=== PATIENT | male | born 1980 | race Caucasian/White ===

== ENCOUNTER 2016-08-13 07:26 | Emergency (ER) | payer BC ==
[2016-08-13 07:54] VITALS: BP 147/87
--- NOTE | 2016-08-13 09:04 | RAD ---
HISTORY: Infected open wound on alvarado of right lower extremity, status post penetrating trauma COMPARISONS: None VIEWS: 2, Frontal and lateral views of the right foreleg FINDINGS: BONE DENSITY: Normal. BONES: There is no displaced fracture. There is no appreciable erosion or periosteal reaction. JOINTS: There is no arthropathy. ALIGNMENT: There is no dislocation. SOFT TISSUES: There is mild soft tissue swelling of the distal tibial diaphysis anteriorly OTHER FINDINGS: None. IMPRESSION: SOFT TISSUE SWELLING. NO APPRECIABLE EROSION OR PERIOSTEAL REACTION. NO ACUTE OSSEOUS INJURY. PLAIN FILM FINDINGS OF OSTEOMYELITIS ARE RELATIVELY LATE FINDINGS. IF THERE IS PERSISTENT CLINICAL CONCERN FOR OSTEOMYELITIS, RECOMMEND CORRELATION WITH FOLLOWUP IMAGING, THREE-PHASE BONE SCANNING, WHITE BLOOD CELL SCAN, AND/OR MRI OF THE AFFECTED REGION. .
[2016-08-13 10:21] LABS: Hematocrit 41 % (42-52); Mean Corpuscular HGB Conc 34 g/dl (31-36); Mean Corpuscular Hemoglobin 31 pg (27-31); Mean Corpuscular Volume 91 fL (80-94); Mean Platelet Volume 9 um3 (7.4-10.4); Red Blood Count 4.58 10^6/ul (4.0-5.4); Red Cell Distribution Width 14 % (10.5-15)
[2016-08-13 11:48] LABS: Erythrocyte Sed Rate 16 mm/Hr (0-14)
--- NOTE | 2016-08-13 14:45 | UC ---
Donald Renner Karl, scribed for Renee Sosa DO on 08/13/16 at 0757 . Laceration HPI - HPI Summary HPI Summary: Pt is a 35 y/o male that presents to [facility] c/o an infected laceration on his right alvarado that he sustained while at 6 days ago. Pt reported that he was at work when he cut his alvarado on a plastic pallet and that medical personnel at his workplace put Neosporin and a Bandaid on it. Pt reported that since the initial injury the area surrounding the cut has become larger, swollen, erythematous, and increasingly painful and there is now bruising around his ankle. Pt stated that he feels 6/10 pain on the left and right side of the wound and above and below it in a ring around his leg, stating "the pain is on the bone." Pt also reported fever, chills, diaphoresis, and intermittent CP "like a pinch" that he felt last night that usually occurs when he is stressed. Pt denied nausea and vomiting. - History Of Current Complaint Chief Complaint: REMINGTONkin Stated Complaint: OPEN WOUND-RT ALVARADO Time Seen by Provider: 08/13/16 07:31 Hx Obtained From: Patient Laceration Location: Ankle - right alvarado Mechanism Of Injury: Blunt Trauma Onset/Duration: Gradual Onset, Lasting Days, Worse Since Severity: Moderate Pain Intensity: 6 - right alvarado pain Pain Scale Used: 0-10 Numeric Aggravating Factors: Nothing Full Body (No Head): 1 - infected wound - Allergies/Home Medications Allergies/Adverse Reactions: Allergies Allergy/AdvReac Type Severity Reaction Status Date / Time Sulfa Antibiotics Allergy Swelling Verified 02/08/15 12:09 Of Face,Lips,& Throat PMH/Surg Hx/FS Hx/Imm Hx Endocrine History Of: Denies: Diabetes, Thyroid Disease Cardiovascular History Of: Reports: Cardiac Disorders - Pericarditis Denies: Hypertension, Pacemaker/ICD Respiratory History Of: Reports: Asthma - A CHILD Denies: COPD GI/ History Of: Denies: Ulcer, Renal Disease - Surgical History Surgical History: Yes Surgery Procedure, Year, and Place: APPENDECTOMY. wisdom teeth extraction. SINUS POLYPS REMOVED - Family History Known Family History: Positive: Cardiac Disease - youngest [place] at 45 y/o, Hypertension, Other - [place] - Social History Occupation: Employed Full-time Lives: With Family Alcohol Use: Weekly Substance Use Type: None Smoking Status (MU): Heavy Every Day Tobacco Smoker Type: Cigarettes Amount Used/How Often: 4 CIG/DAY Length of Time of Smoking/Using Tobacco: 15 years Have You Smoked in the Last Year: Yes Cessation Counseling: Counseled 3+Min - 10 Min - Immunization History Most Recent Influenza Vaccination: Season Review of Systems Constitutional: Fever, Chills, Other - diaphoresis Skin: Bruising, Other - laceration right alvarado Eyes: Negative ENT: Negative Respiratory: Negative Cardiovascular: Negative Gastrointestinal: Negative Genitourinary: Negative Motor: Negative Neurovascular: Negative Musculoskeletal: Edema - right alvarado, Other: - right alvarado Neurological: Negative Psychological: Negative All Other Systems Reviewed And Are Negative: Yes Physical Exam Triage Information Reviewed: Yes Appearance: Well-Appearing, No Pain Distress, Well-Nourished Vital Signs: Initial Vital Signs Temp 98.3 F 08/13/16 07:43 Pulse 92 08/13/16 07:43 Resp 16 08/13/16 07:43 BP 147/87 08/13/16 07:43 Pulse Ox 98 08/13/16 07:43 Vital Signs Reviewed: Yes Eyes: Positive: Conjunctiva Clear. Negative: Discharge ENT: Positive: Hearing grossly normal. Negative: Muffled/hoarse voice Neck exam: Normal Neck: Positive: Supple Respiratory: Positive: Chest non-tender, Lungs clear, Normal breath sounds, No respiratory distress Cardiovascular: Positive: RRR, No Murmur Neurological: Positive: Alert, Muscle Tone Normal Psychological Exam: Normal Psychological: Positive: Age Appropriate Behavior Skin: Positive: significant lesion(s) - 5 cm gash distal 1/3 over ant tibia. area around wound is hot, swollen, erythematous and tender. pt has equisite blaise tenderness on tibia above and below wound Diagnostics - Radiology XR RLE Xray Interpretation: Positive (See Comments) Radiology Interpretation Completed By: Radiologist - IMPRESSION: SOFT TISSUE SWELLING. NO APPRECIABLE EROSION OR PERIOSTEAL REACTION. NO ACUTE OSSEOUS INJURY. PLAIN FILM FINDINGS OF OSTEOMYELITIS ARE RELATIVELY LATE FINDINGS. IF THERE IS PERSISTENT CLINICAL CONCERN FOR OSTEOMYELITIS, RECOMMEND CORRELATION WITH FOLLOWUP IMAGING, THREE-PHASE BONE SCANNING, WHITE BLOOD CELL SCAN, AND/OR MRI OF THE AFFECTED REGION. Laceration Course/Dx - Differential Dx - Laceration/Wound Differental Diagnoses: Avulsion, Cellulitis, Other - wound infection, osteomyelitis Provider Diagnoses: wound infection - Physician Notification/Consults Discussed Patient Care With: Dr. Marquez (Ortho) at 08:55 who agreed to accept the pt. Discharge - Discharge Plan Condition: Stable Disposition: HOME Patient Education Materials: Wound Infection (ED), Osteomyelitis (ED) Referrals: Suleiman Hunt MD [Primary Care Provider] - Oracio Marquez MD [Medical Doctor] - (GOT TO HER OFFICE NOW) Additional Instructions: WE ARE CONCERNED ABOUT THE POSSIBILITY OF AN INFECTION IN THE BONE. SO, WE ARE SENDING YOU TO THE ORTHOPEDIST, DR MARQUEZ TO BE EVALUATED. PLEASE GO THERE NOW. FOLLOW-UP CARE: You should establish with a private physician for follow-up care. If you are unable to get a timely appointment, or if you are worsening, call us or return for re-evaluation. An additional resource available to assist in finding the appropriate physician for your health care needs is the Physician Referral Center. You may contact them by calling [phone]. The documentation as recorded by the Donald batres Karl accurately reflects the service I personally performed and the decisions made by , Renee Sosa DO.
== END 2016-08-13 09:36 | disposition home or self-care (01) ==
LOC: UCEAST 07:26
DX: S81.811A Laceration without foreign body, right lower leg, initial encounter (principal); L08.9 Local infection of the skin and subcutaneous tissue, unspecified; W45.8XXA Other foreign body or object entering through skin, initial encounter; Y93.9 Activity, unspecified; Y92.9 Unspecified place or not applicable; Y99.0 Civilian activity done for income or pay; Z88.2 Allergy status to sulfonamides; F17.210 Nicotine dependence, cigarettes, uncomplicated
CPT/HCPCS: 36415; 85025; 85652; 86141; 99211; G0463

== ENCOUNTER 2017-10-04 03:32 | Emergency (ER) | payer BC ==
[2017-10-04] MEDS ORDERED: Al Hydrox/Mg Hydrox/Simet LIQ* 30 ML UDC PO ONE (03:50)
[2017-10-04] MEDS ORDERED: Pantoprazole IV* 40 MG IV ONE (03:51)
[2017-10-04 04:08] LABS: ABS Basophils 0.1 10^3/ul (0-0.2); ABS Eosinophils 0.1 10^3/ul (0-0.6); ABS Lymphocytes 2.1 10^3/ul (1.0-4.8); ABS Monocytes 0.4 10^3/ul (0-0.8); ABS Neutrophils 3.7 10^3/ul (1.5-7.7); ABS Nucleated RBC 0 10^3/ul; Eosinophil % 1.6 % (0-6); Hematocrit 38 % (42-52); Hemoglobin 13.3 g/dl (14.0-18.0); Mean Corpuscular HGB Conc 35 g/dl (31-36); Mean Corpuscular Hemoglobin 33 pg (27-31); Mean Corpuscular Volume 94 fL (80-94); Mean Platelet Volume 8 um3 (7.4-10.4); Nucleated Red Blood Cells % 0; Platelet Count 301 10^3/ul (150-450); Red Blood Count 4.11 10^6/ul (4.0-5.4); Red Cell Distribution Width 14 % (10.5-15); White Blood Count 6.4 10^3/ul (3.5-10.8)
[2017-10-04 04:15] LABS: INR 0.94 (0.77-1.02)
[2017-10-04 04:23] LABS: EGFR Non-African American 96.2 (>60)
[2017-10-04 05:08] VITALS: BP 112/65
--- NOTE | 2017-10-04 05:21 | ED ---
Aury Renner Julia, scribed for David Hoang MD on 10/04/17 at 0350 . 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 Patient reports relief with belching. Patient denies radiating pain. EMS treated with 324mg of ASA and Nitroglycerin. Patient reports recent stress. - History of Current Complaint Chief Complaint: EDChestPainROMI Time Seen by Provider: 10/04/17 03:38 Hx Obtained From: Patient, EMS Onset/Duration: Started Hours Ago, Resolved Timing: Lasting Minutes Pain Intensity: 0 Chest Pain Location: Mid Sternal - Sub-sternal Chest Pain Radiates: No Alleviating Factor(s): Other: - belching Associated Signs and Symptoms: Positive: Shortness of Breath - Allergy/Home Medications Allergies/Adverse Reactions: Allergies Allergy/AdvReac Type Severity Reaction Status Date / Time Sulfa (Sulfonamide Allergy Swelling Verified 10/04/17 03:52 Antibiotics) Of Face,Lips,& Throat PMH/Surg Hx/FS Hx/Imm Hx Endocrine/Hematology History: Denies: Hx Diabetes, Hx Thyroid Disease Cardiovascular History: Denies: Hx Hypertension, Hx Pacemaker/ICD Respiratory History: Reports: Hx Asthma - A CHILD Denies: Hx Chronic Obstructive Pulmonary Disease (COPD) GI History: Denies: Hx Ulcer History: Denies: Hx Renal Disease Sensory History: Denies: Hx Hearing Aid Neurological History: Reports: Other Neuro Impairments/Disorders - DYSTONIA Denies: Hx Headaches Psychiatric History: Denies: Hx Panic Disorder - Surgical History Surgery Procedure, Year, and Place: APPENDECTOMY. wisdom teeth extraction. SINUS POLYPS REMOVED Infectious Disease History: No Infectious Disease History: Denies: Hx Hepatitis, Hx Human Immunodeficiency Virus (HIV), History Other Infectious Disease, Traveled Outside the [place] in Last 30 Days - Family History Known Family History: Positive: Cardiac Disease - youngest [place] at 45 y/o, Hypertension, Other - [place] - Social History Alcohol Use: Weekly Substance Use Type: Reports: None Smoking Status (MU): Heavy Every Day Tobacco Smoker Type: Cigarettes Amount Used/How Often: 4 CIG/DAY Length of Time of Smoking/Using Tobacco: 15 years Have You Smoked in the Last Year: Yes Review of Systems Positive: Chest Pain Positive: Shortness Of Breath Negative: Myalgia - shoulder pain All Other Systems Reviewed And Are Negative: Yes Physical Exam - Summary Physical Exam Summary: VITAL SIGNS: Reviewed. GENERAL: Patient is a well-developed and nourished male who is lying comfortable in the stretcher. Patient is not in any acute respiratory distress. HEAD AND FACE: No signs of trauma. No ecchymosis, hematomas or skull depressions. No sinus tenderness. EYES: PERRLA, EOMI x 2, No injected conjunctiva, no nystagmus. EARS: Hearing grossly intact. Ear canals and tympanic membranes are within normal limits. MOUTH: Oropharynx within normal limits. NECK: Supple, trachea is midline, no adenopathy, no JVD, no carotid bruit, no c- spine tenderness, neck with full ROM. CHEST: Symmetric, no tenderness at palpation SKIN: Dry and warm LUNGS: Clear to auscultation bilaterally. No wheezing or crackles. CVS: Regular rate and rhythm, S1 and S2 present, no murmurs or gallops appreciated. ABDOMEN: Soft, with epigastric tenderness. No signs of distention. No rebound no guarding, and no masses palpated. Bowel sounds are normal. EXTREMITIES: FROM in all major joints, no edema, no cyanosis or clubbing. NEURO: Alert and oriented x 3. No acute neurological deficits. Speech is normal and follows commands. Triage Information Reviewed: Yes Vital Signs On Initial Exam: Initial Vitals Temp Pulse Resp BP Pulse Ox 98.6 F 70 18 120/58 95 10/04/17 03:36 10/04/17 03:36 10/04/17 03:36 10/04/17 03:36 10/04/17 03:36 Vital Signs Reviewed: Yes Diagnostics - Vital Signs Vital Signs Temp Pulse Resp BP Pulse Ox 10/04/17 03:36 98.6 F 70 18 120/58 95 - Laboratory Result Diagrams: 10/04/17 03:55 10/04/17 03:55 Lab Statement: Any lab studies that have been ordered have been reviewed, and results considered in the medical decision making process. - EKG 0333 Cardiac Rate: NL - at 67 BPM EKG Rhythm: Sinus Rhythm EKG Interpretation: Normal axis. Normal interval. No ischemic changes. J point elevation. Re-Evaluation - Re-Evaluation 1 Comment: Results reviewed with patient. Patient will be discharged. 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 Patient reports relief with belching. Patient denies radiating pain. An EKG is of no acute concern. Bloodwork is unremarkable. Patient is given Maalox and Protonix. - Diagnoses Provider Diagnoses: Atypical chest pain, GERD (gastroesophageal reflux disease) Discharge - Discharge Plan Condition: Stable Disposition: HOME Prescriptions: Pantoprazole TAB (NF) [Protonix TAB (NF)] 40 mg PO DAILY #30 tab Patient Education Materials: Chest Pain (ED), Gastroesophageal Reflux Disease ( ED) Referrals: Suleiman Hunt MD [Primary Care Provider] - 7 Days (Follow up with your primary care physician. ) Additional Instructions: RETURN TO THE EMERGENCY DEPARTMENT FOR CHANGING OR WORSENING SYMPTOMS. The documentation as recorded by the Aury batres Julia accurately reflects the service I personally performed and the decisions made by me, David Hoang MD.
== END 2017-10-04 05:10 | disposition home or self-care (01) ==
LOC: ED 03:32
DX: R07.89 Other chest pain (principal); K21.9 Gastro-esophageal reflux disease without esophagitis; R06.02 Shortness of breath; F17.211 Nicotine dependence, cigarettes, in remission
CPT/HCPCS: 36415; 80053; 82550; 83735; 84484; 85025; 85610; 85730; 93005; 96374; 99284; A9270-GY

== ENCOUNTER 2018-04-27 11:58 | Emergency (ER) | payer BC ==
[2018-04-27] MEDS ORDERED: Tetan/Diph/Pertus SYR(Tdap)* 0.5 ML SYR(BOOSTRIX) use SYR IM ONE (12:36)
[2018-04-27] MEDS ORDERED: Amoxicillin/Clavulanate TAB* 875 MG PO ONE (12:36)
[2018-04-27] MEDS ORDERED: Ibuprofen TAB* 800 MG PO ONE (12:36)
[2018-04-27] MEDS ORDERED: Lidocaine 1%* 5 ML VIAL INJ ONE (12:37)
--- NOTE | 2018-04-27 12:38 | ED ---
Bite Injury/Animal - HPI Summary HPI Summary: Patient is a 37-year-old male who presents emergency department for a dog bite wound to that occurred just prior to arrival. Patient states he was talking to his neighbor and his neighbor's dog jumped up and bit his finger. Patient is unsure of that dog's vaccination status the dog lives with neighbor and is a family pet. Patient's mother is working on obtaining vaccination status. Pt. has no significant past medical history. He is unaware of his last tetanus immunization. Symptoms are mild in severity. Touching wound makes symptoms worse. Rest makes symptoms better. - History of Current Complaint Chief Complaint: EDAnimalBite Stated Complaint: DOG BITE ON LT RING FINGER Time Seen by Provider: 04/27/18 12:12 Hx Obtained From: Patient Pain Intensity: 7 - Allergies/Home Medications Allergies/Adverse Reactions: Allergies Allergy/AdvReac Type Severity Reaction Status Date / Time Sulfa (Sulfonamide Allergy Swelling Verified 10/04/17 03:52 Antibiotics) Of Face,Lips,& Throat PMH/Surg Hx/FS Hx/Imm Hx Previously Healthy: Yes Endocrine/Hematology History: Denies: Hx Diabetes, Hx Thyroid Disease Cardiovascular History: Denies: Hx Hypertension, Hx Pacemaker/ICD Respiratory History: Reports: Hx Asthma - A CHILD Denies: Hx Chronic Obstructive Pulmonary Disease (COPD) GI History: Denies: Hx Ulcer History: Denies: Hx Renal Disease Sensory History: Denies: Hx Hearing Aid Neurological History: Reports: Other Neuro Impairments/Disorders - DYSTONIA Denies: Hx Headaches Psychiatric History: Denies: Hx Panic Disorder - Surgical History Surgery Procedure, Year, and Place: APPENDECTOMY. wisdom teeth extraction. SINUS POLYPS REMOVED Infectious Disease History: No Infectious Disease History: Denies: Hx Hepatitis, Hx Human Immunodeficiency Virus (HIV), History Other Infectious Disease, Traveled Outside the US in Last 30 Days - Family History Known Family History: Positive: Cardiac Disease - youngest [place] at 45 y/o, Hypertension, Other - [place] - Social History Occupation: Employed Full-time Lives: With Family Alcohol Use: Weekly Substance Use Type: Reports: None Smoking Status (MU): Heavy Every Day Tobacco Smoker Type: Cigarettes Amount Used/How Often: 4 CIG/DAY Length of Time of Smoking/Using Tobacco: 15 years Have You Smoked in the Last Year: Yes Review of Systems Positive: Other - Dog bite left 4th digit of hand Neurological: Negative Negative: Weakness, Paresthesia, Numbness All Other Systems Reviewed And Are Negative: Yes Physical Exam Triage Information Reviewed: Yes Vital Signs On Initial Exam: Initial Vitals Temp Pulse Resp BP Pulse Ox 98.9 F 97 18 142/80 98 04/27/18 12:03 04/27/18 12:03 04/27/18 12:03 04/27/18 12:03 04/27/18 12:03 Vital Signs Reviewed: Yes Appearance: Positive: Well-Appearing - Patient sitting on bed in no acute distress. Skin: Positive: Warm, Dry Head/Face: Positive: Normal Head/Face Inspection Eyes: Positive: Normal, EOMI Musculoskeletal: Positive: Other - 4centimeter, full-thickness laceration noted to the lateral aspect of the fourth digit left hand. Patient has full range of motion of digit. Neurological: Positive: Normal, CN Intact II-III Psychiatric: Positive: Affect/Mood Appropriate Procedures - Splinting Left 4th Digit Location: 4th digit left hand Pre-Made Type: finger spint Pre-Proc Neuro Vasc Exam: normal Post-Proc Neuro Vasc Exam: normal - Laceration/Wound Repair 1 Location: upper extremity - 4th digit left hand Description: Irregular Anesthesia: Local, 1.0% - 4cmm Length, Depth and Shape: 4cm irregular full thickness Betadine Prep?: No - hibiclens Irrigated w/ Saline (ccs): 500 - Wound was extensively irrigated under pressure Laceration/Wound Explored: clean Closure: Single Layer Suture Type: Nylon - 4-0 Number of Sutures: 4 Layer Closure?: No Sterile Dressing Applied?: Yes Diagnostics - Vital Signs Vital Signs Temp Pulse Resp BP Pulse Ox 04/27/18 12:03 98.9 F 97 18 142/80 98 - Laboratory Lab Statement: Any lab studies that have been ordered have been reviewed, and results considered in the medical decision making process. Bite Injury Course/Dx - Course Course Of Treatment: Pt. presenting for laceration secondary to dog bite. Tetanus was updated and pt. started on augmentin. Motrin given for pain. Finger xray per radiology: REPORT AND IMPRESSION: #. Negative for fracture or malalignment. Subtle increased density along the palmar. aspect at the level of the base of the middle phalanx may represent an overlying bandage. or less likely punctate retained foreign bodies within the soft tissue plane. Correlate. with clinical assessment and consider repeat exam with bandage removed if deemed. appropriate.----pt. has no breaks in skin to 3rd digit. Given extent of laceration wound was loosely closed. Wound was extensively irrigated under pressure and cleaned. Wound was loosely approximated. Splint placed to avoid bending finger. Work excuse given. Animal bite form filled and faxed. Rabies vaccination note indicated at this time since dog is captive and can be watched. Will f.u with Animal Control. Advised wound check in 2-3 days. Suture removal in 10-14 days. To return to ER for redness, swelling, drainage, difficulty bending finger. Pt. understands and agrees with plan. - Diagnoses Differential Diagnosis/HQI/PQRI: Positive: Crush Injury, Fracture, Laceration, Puncture Provider Diagnosis: Dog bite, Finger laceration Discharge - Sign-Out/Discharge Documenting (check all that apply): Patient Departure - Discharge Plan Condition: Good Disposition: HOME Prescriptions: Amoxicillin/Clavulanate TAB* [Augmentin TAB 875*] 875 mg PO BID #20 tab Patient Education Materials: Animal Bite (ED), Care For Your Stitches (ED) Forms: *Work Release Referrals: Suleiman Hunt MD [Primary Care Provider] - Additional Instructions: Call your PCP today for a wound check appointment in 2-3 days Suture removal in 10-14 days Follow up Animal Control Keep wound clean and dry Take antibiotic as directed Tylenol or Motrin for pain as directed Return to ER for redness, swelling, drainage at suture site, or difficulty bending finger - Billing Disposition and Condition Condition: GOOD Disposition: Home
--- NOTE | 2018-04-27 14:12 | RAD ---
Indication: 1.5 cm laceration LEFT fourth finger following dog bite. Comparison: No relevant prior exams available on the [facility] PACS for comparison. Technique: 3 views LEFT fourth finger. REPORT AND IMPRESSION: #. Negative for fracture or malalignment. Subtle increased density along the palmar aspect at the level of the base of the middle phalanx may represent an overlying bandage or less likely punctate retained foreign bodies within the soft tissue plane. Correlate with clinical assessment and consider repeat exam with bandage removed if deemed appropriate.
[2018-04-27 14:40] VITALS: BP 128/72
== END 2018-04-27 14:39 | disposition home or self-care (01) ==
LOC: ED 11:58
DX: S61.255A Open bite of left ring finger without damage to nail, initial encounter (principal); W54.0XXA Bitten by dog, initial encounter; Y92.9 Unspecified place or not applicable; F17.210 Nicotine dependence, cigarettes, uncomplicated
CPT/HCPCS: 12001; 73140; 90471; 90715; 96374; 99282; A9270-GY

== ENCOUNTER 2018-08-20 08:46 | Emergency (ER) | payer BC ==
[2018-08-20 08:53] VITALS: BP 129/75
--- NOTE | 2018-08-20 08:55 | UC ---
Respiratory Complaint HPI - HPI Summary HPI Summary: 37 yo male presents with fever, fatigue, body aches, and productive cough for the last 2-3 days. Getting progressively worse. He has been taking dayquill/ nyquill with no relief. He does smoke daily. Says that he feels sore all over and his "belly hurts from coughing". Feels short of breath at times and painful to take a deep breath/cough. Also has some nausea, but no vomiting. Denies diarrhea, constipation, dysuria, vomiting. - History of Current Complaint Chief Complaint: UCRespiratory Stated Complaint: COUGH, CONGESTION Time Seen by Provider: 08/20/18 08:54 Hx Obtained From: Patient Onset/Duration: Gradual Onset Severity Initially: Moderate Severity Currently: Severe Pain Intensity: 8 Pain Scale Used: 0-10 Numeric Character: Cough: Productive Aggravating Factors: Deep Breaths - Allergies/Home Medications Allergies/Adverse Reactions: Allergies Allergy/AdvReac Type Severity Reaction Status Date / Time Sulfa (Sulfonamide Allergy Swelling Verified 08/20/18 08:54 Antibiotics) Of Face,Lips,& Throat PMH/Surg Hx/FS Hx/Imm Hx - Additional Past Medical History Additional PMH: Dystonia - Surgical History Surgical History: Yes Surgery Procedure, Year, and Place: APPENDECTOMY. wisdom teeth extraction. SINUS POLYPS REMOVED - Family History Known Family History: Positive: Cardiac Disease - youngest [place] at 45 y/o, Hypertension, Other - [place] - Social History Occupation: Student Lives: With Family Alcohol Use: Weekly Substance Use Type: None Smoking Status (MU): Heavy Every Day Tobacco Smoker Type: Cigarettes Amount Used/How Often: 4 CIG/DAY Length of Time of Smoking/Using Tobacco: 15 years Have You Smoked in the Last Year: Yes - Immunization History Most Recent Influenza Vaccination: Season Review of Systems All Other Systems Reviewed And Are Negative: Yes Constitutional: Positive: Fever, Fatigue, Other - Body aches Skin: Positive: Negative Eyes: Positive: Negative ENT: Positive: Negative Respiratory: Positive: Shortness Of Breath, Cough Cardiovascular: Positive: Negative Gastrointestinal: Positive: Negative Neurovascular: Positive: Negative Neurological: Positive: Negative Psychological: Positive: Negative Physical Exam - Summary Physical Exam Summary: GENERAL: LEs shaking due to dystonia. Mildly ill appearing. SKIN: No rashes, sores, lesions, or open wounds. HEENT: Head: AT/NC Eyes: Conjunctiva clear without inflammation or discharge. Ears: Hearing grossly normal. TMs intact, no bulging, erythema, or edema. Nose: Nasal mucosa pink and moist. NTTP maxillary and frontal sinus. Throat: Posterior oropharynx without exudates, erythema, or tonsillar enlargement. Uvula midline. NECK: Supple. Nontender. No lymphadenopathy. CHEST: Mild wheezing throughout right lung with rales at RLL. No accessory muscle use. Breathing comfortably and in no distress. CV: RRR. Without m/r/g. Pulses intact. Cap refill <2seconds NEURO: Alert. PSYCH: Age appropriate behavior. Triage Information Reviewed: Yes Vital Signs: Initial Vital Signs Temp 101.8 F 08/20/18 08:51 Pulse 110 08/20/18 08:51 Resp 20 08/20/18 08:51 BP 129/75 08/20/18 08:51 Pulse Ox 97 08/20/18 08:51 Laboratory Tests 08/20/18 09:06 Influenza A (Rapid) Positive A Vital Signs Reviewed: Yes UC Diagnostic Evaluation - Laboratory O2 Sat by Pulse Oximetry: 97 Respiratory Course/Dx - Course Course Of Treatment: CXR: IMPRESSION: IN THE CORRECT CLINICAL SETTING CHEST X- RAY FINDINGS COULD BE COMPATIBLE WITH SUBSEGMENTAL. PNEUMONIA INVOLVING THE DEPENDENT ANTERIOR RIGHT LOWER LOBE. Duoneb: Significant improvement. Pt reports easier to take a deep breath. Less wheezing on exam. In the clinic pt was given zofran for his nausea, ibuprofen for his fever and discomfort, and a duoneb treatment for his SOB/wheezing - he reported feeling better overall. His flu test was positive. Will treat him for PNA and flu. Advised to f/u with PCP within 1 week for a recheck. Go to ED if symptoms worsen or if he develops new symptoms. - Differential Dx/Diagnosis Provider Diagnosis: Influenza, Pneumonia Discharge - Sign-Out/Discharge Documenting (check all that apply): Patient Departure All imaging exams completed and their final reports reviewed: Yes - Discharge Plan Condition: Stable Disposition: HOME Prescriptions: Amoxicillin/Clavulanate TAB* [Augmentin TAB 875*] 875 mg PO BID #20 tab Ondansetron ODT TAB* [Zofran 4 MG Odt TAB*] 4 mg PO Q8H PRN #16 tab.odt PRN Reason: Nausea Oseltamivir CAP* [Tamiflu CAP*] 75 mg PO BID #10 cap Patient Education Materials: Influenza (DC), Community Acquired Pneumonia (DC) Forms: *Work Release Referrals: Suleiman Hunt MD [Primary Care Provider] - 1 Week Additional Instructions: If you develop a fever, shortness of breath, chest pain, new or worsening symptoms - please call your PCP or go to the ED. Rest and drink plenty of clear fluids. Advance diet as tolerated. - Billing Disposition and Condition Condition: STABLE Disposition: Home
[2018-08-20] MEDS ORDERED: Ondansetron ODT TAB* 4 MG SL ONE (09:00)
[2018-08-20] MEDS ORDERED: Acetaminophen TAB* 325 MG PO ONE (09:00)
[2018-08-20] MEDS ORDERED: Albuterol/Ipratropium NEB.SOL* Albuterol 2.5 MG/Ipratropium 0.5 MG 3 ML INH ONE (09:01)
[2018-08-20] MEDS ORDERED: Ibuprofen TAB* 600 MG PO ONE (09:02)
[2018-08-20 09:10] LABS: Influenza A Molecular POSITIVE (Negative)
== END 2018-08-20 10:15 | disposition home or self-care (01) ==
LOC: UCEAST 08:46
DX: J11.1 Influenza due to unidentified influenza virus with other respiratory manifestations (principal); J18.9 Pneumonia, unspecified organism; F17.210 Nicotine dependence, cigarettes, uncomplicated; Z88.2 Allergy status to sulfonamides
CPT/HCPCS: 71046; 99213; A9270-GY; G0463

== ENCOUNTER 2019-04-07 15:42 | Emergency (ER) | payer BC ==
--- OUTSIDE RECORDS SUMMARY | 2019-04-07 16:01 | XMS REPORT | Continuity of Care Document ---
:1980 External Reference #:[id number] Author Name Nae Savage Address [address] [place] [address] Problems Active Problems Provider Date Adjustment disorder with depressed mood Suleiman Hunt M.D. Onset: 2015 Social History Type Date Description Comments Sex Unknown Recreational Drug Use Denies Drug Use Tobacco Use Start: Unknown Patient is a current smoker, smokes every day Smoking Status Reviewed: 10/05/17 Patient is a current smoker, smokes every day Allergies, Adverse Reactions, Alerts Active Allergies Reaction Severity Comments Date Pediazole Swelling 05/04/2007 Sulfa 06/18/2017 Medications Active Medications SIG Qnty Indications Ordering Provider Date Note Due To Health pt was seen in [facility], 04/04/2019 Issues this office Afnp-C today, will be out of work through 04/18/19 Tramadol HCL 1-2 by mouth 30tabs M50.13 [facility], 04/04/2019 50mg every 6 hours as Afnp-C Tablets needed for pain History Medications No Active Medications Unknown 04/04/2019 - 04/04/2019 Immunizations Description No Information Available Vital Signs Date Vital Result Comment 04/04/2019 10:47am BP Systolic 110 mmHg BP Diastolic 70 mmHg Heart Rate 88 /min Body Temperature 98.6 F Respiratory Rate 12 /min Height 70 inches 5'10" measured Weight 140.00 lb BMI (Body Mass Index) 20.1 kg/m2 09/01/2018 8:53am BP Systolic 120 mmHg BP Diastolic 78 mmHg Heart Rate 76 /min Body Temperature 98.4 F Respiratory Rate 18 /min Weight 169.00 lb Results Description No Information Available Procedures Description No Information Available Medical Devices Description No Information Available Encounters Description No Information Available Assessments Date Code Description Provider 04/04/2019 M50.13 Cervical disc disorder with radiculopathy, Liz Topetejanine, Ray-C cervicothoracic region Plan of Treatment Future Appointment(s):04/19/2019 10:30 am - Suleiman Hunt M.D. at [facility]04/04/2019 - [facility] Landeros, Ray-CM50.13 Cervical disc disorder with radiculopathy, cervicothoracic regionNew Medication:Tramadol HCL 50 mg - 1-2 by mouth every 6 hours as needed for painAllComments:Medication Management Patient Understands medications he's taking? Yes No no rx meds Are there Barriers to Adherence? Yes No na Has the patient been asked about herbal supplements and therapies, and OTC meds? Yes No Care Plan1. Patient has been queried about patient's goals/preferences and functional/ lifestyle goals at relevant visits. If relevant, describe: na2. Treatment goals as explained to the patient: abovepain relief return to function rotuine health maintenance and disease prevention3. Are there barriers to meeting treatment goals? Yes No If Yes, please describe:4. Self-Management goals as described to the patient: Yes No note for work he willcontinue conservative treatment and f/u with his pcp 1-2 weeks Functional Status Description No Information Available Mental Status Description No Information Available Referrals Description No Information Available
--- NOTE | 2019-04-07 16:28 | ED ---
Neck Pain - HPI Summary HPI Summary: The patient is a 38 y/o M presenting to [facility] with a chief complaint of right neck pain gradually worsening over the last week. He reports that he lifted a heavy door over his head this past weekend, and he has since experiencing pain in the right trapezius described as an aching stiff pain. Currently, his symptoms are rated 8/10 in severity. He has not used any medications prior to arrival to treat the pain. He denies new numbness in the neck or upper extremities. He states that he has hx of herniated discs in C6-C7, and he also has hx of dystonia of unknown origin. He has received treatment for the herniated discs at a chiropractor, and his PCP is Dr. Hunt, who he attempted to visit two days ago, but saw an RESIDENT IN DIAGNOSTIC RADIOLOGY in the office who was not concerned about the neck pain at the time. PMHx: asthma, dystonia. Heavy every day cigarette smoker, weekly EtOH, no substance use. Medications reviewed. Allergies noted. - History of Current Complaint Chief Complaint: EDNeckComplaint Stated Complaint: NECK/SHOULDER PAIN AND NUMBNESS IN HANDS PER PT Time Seen by Provider: 04/07/19 16:17 Hx Obtained From: Patient Onset/Duration Of Injury/Symptoms: Days Mechanism Of Injury: Other - lifted heavy door above head Timing: Lasting Days Onset/Duration: Gradual Onset, Started days ago - almost one week, Still Present Severity Initially: Moderate Severity Currently: Severe Pain Intensity: 8 Pain Scale Used: 0-10 Numeric Character: Aching, Stiff Aggravating Factors: Movement Alleviating Factors: Nothing Associated Signs & Symptoms: Negative: Paresthesia - Allergies/Home Medications Allergies/Adverse Reactions: Allergies Allergy/AdvReac Type Severity Reaction Status Date / Time Sulfa (Sulfonamide Allergy Swelling Verified 04/07/19 15:51 Antibiotics) Of Face,Lips,& Throat PMH/Surg Hx/FS Hx/Imm Hx Endocrine/Hematology History: Denies: Hx Diabetes, Hx Thyroid Disease Cardiovascular History: Denies: Hx Hypercholesterolemia, Hx Hypertension, Hx Pacemaker/ICD Respiratory History: Reports: Hx Asthma - A CHILD Denies: Hx Chronic Obstructive Pulmonary Disease (COPD) GI History: Denies: Hx Ulcer History: Denies: Hx Renal Disease Musculoskeletal History: Reports: Other Musculoskeletal History - herniated discs C6-C7 Sensory History: Denies: Hx Hearing Aid Neurological History: Reports: Other Neuro Impairments/Disorders - DYSTONIA Denies: Hx Headaches Psychiatric History: Denies: Hx Panic Disorder - Surgical History Surgical History: Yes Surgery Procedure, Year, and Place: APPENDECTOMY. wisdom teeth extraction. SINUS POLYPS REMOVED Infectious Disease History: No Infectious Disease History: Denies: Hx Hepatitis, Hx Human Immunodeficiency Virus (HIV), History Other Infectious Disease, Traveled Outside the [place] in Last 30 Days - Family History Known Family History: Positive: Cardiac Disease - youngest [place] at 45 y/o, Hypertension, Other - [place] - Social History Alcohol Use: Weekly Hx Substance Use: No Substance Use Type: Reports: None Hx Tobacco Use: Yes Smoking Status (MU): Heavy Every Day Tobacco Smoker Type: Cigarettes Amount Used/How Often: 4 CIG/DAY Length of Time of Smoking/Using Tobacco: 15 years Have You Smoked in the Last Year: Yes Review of Systems Positive: Other - right-sided neck pain Negative: Numbness - in the extremities or neck All Other Systems Reviewed And Are Negative: Yes Physical Exam - Summary Physical Exam Summary: VITAL SIGNS: Reviewed. GENERAL: Patient is a well-developed and nourished male who is lying comfortable in the stretcher. Patient is not in any acute respiratory distress. HEAD AND FACE: No signs of trauma. No ecchymosis, hematomas or skull depressions. No sinus tenderness. EYES: PERRLA, EOMI x 2, No injected conjunctiva, no nystagmus. EARS: Hearing grossly intact. Ear canals and tympanic membranes are within normal limits. MOUTH: Oropharynx within normal limits. NECK: Stiffness in neck, some tenderness in cervical spine. Supple, trachea is midline, no adenopathy, no JVD, no carotid bruit. CHEST: Symmetric, no tenderness at palpation. LUNGS: Clear to auscultation bilaterally. No wheezing or crackles. CVS: Regular rate and rhythm, S1 and S2 present, no murmurs or gallops appreciated. ABDOMEN: Soft, non-tender. No signs of distention. No rebound, no guarding, and no masses palpated. Bowel sounds are normal. EXTREMITIES: Good capillary refill in upper extremities. Good strength in upper extremities. FROM in all major joints, no edema, no cyanosis or clubbing. NEURO: Alert and oriented x 3. No acute neurological deficits. Speech is normal and follows commands. SKIN: Dry and warm. Triage Information Reviewed: Yes Vital Signs On Initial Exam: Initial Vitals Temp Pulse Resp BP Pulse Ox 98.8 F 95 18 108/72 98 04/07/19 15:50 04/07/19 15:50 04/07/19 15:50 04/07/19 15:50 04/07/19 15:50 Vital Signs Reviewed: Yes Diagnostics - Vital Signs Vital Signs Temp Pulse Resp BP Pulse Ox 04/07/19 15:50 98.8 F 95 18 108/72 98 - Laboratory Lab Statement: Any lab studies that have been ordered have been reviewed, and results considered in the medical decision making process. - CT Cervical Spine CT CT Interpretation Completed By: Radiologist Summary of CT Findings: Impression: 1. Spondylitic changes at C5-6 and C6-7, with no severe central canal stenosis. 2. Left lateral disc extrusion is seen at C5-6, mildly narrowing the central canal. 3. Right neural foraminal stenosis at C6-7. ED physician has reviewed this report. Re-Evaluation - Re-Evaluation First Eval Re-Evaluation Time: 18:40 Change: Improved Comment: Symptoms have improved. We discussed all results and plan for discharge. Neck Course/Dx - Course Assessment/Plan: Patient is a 38 y/o M with chief complaint of right trapezius pain gradually worsening after lifting a heavy door almost a week ago. C-spine CT IMPRESSION: 1. Spondylitic changes at C5-6 and C6-7, with no severe central canal stenosis. 2. Left lateral disc extrusion is seen at C5-6, mildly narrowing the central canal. 3. Right neural foraminal stenosis at C6-7. In the ED course the patient was given Toradol and Norflex, and the symptoms have significantly improved. Patient will be discharged home with follow-up with primary care physician and neurosurgery. The patient will be given a prescription for Robaxin, Medrol Dose Pack, and ibuprofen. Patient is hemodynamically stable alert and oriented 3. - Diagnoses Provider Diagnoses: Neck pain Discharge ED - Sign-Out/Discharge Documenting (check all that apply): Patient Departure - Patient will be discharged home. Patient Received Moderate/Deep Sedation with Procedure: No - Discharge Plan Condition: Stable Disposition: HOME Prescriptions: Ibuprofen TAB* [Motrin TAB* 600 MG] 600 mg PO Q8H PRN #30 tab PRN Reason: Pain - Moderate Methocarbamol TAB* [Robaxin 500 MG TAB*] 500 mg PO TID PRN #12 tab PRN Reason: Spasms - Neck methylPREDNISolone [Medrol Dosepak 4 MG*] 0 mg PO .SEE NIGHAT INSTRUCTION #1 nighat Patient Education Materials: Neck Pain (ED) Referrals: Matthew Reddy MD [Medical Doctor] - 3 Days Suleiman Hunt MD [Primary Care Provider] - 3 Days Additional Instructions: Follow up with Dr. Reddy, neurosurgery, in 2-3 days. Follow up with your primary care provider in 2-3 days. Return to the emergency department for any new or worsening symptoms. - Billing Disposition and Condition Condition: STABLE Disposition: Home - Attestation Statements Document Initiated by Araceliibramirez: Yes Documenting Scribe: Gladys Singleton Provider For Whom Richar is Documenting (Include Credential): Dr. Jesus Mcdonald MD Scribe Attestation: Gladys Renner scribed for Dr. Jesus Mcdonald MD on 04/08/19 at 1834. Scribe Documentation Reviewed: Yes Provider Attestation: The documentation as recorded by the Gladys batres accurately reflects the service I personally performed and the decisions made by me, Dr. Jesus Mcdonald MD Status of Scribe Document: Viewed
[2019-04-07] MEDS ORDERED: Orphenadrine Citrate IV* 30 MG/ML 2 ML VIAL IM ONE (17:16)
[2019-04-07] MEDS ORDERED: Ketorolac *IM* INJ* 60 MG/2 ML VIAL IM ONE (17:16)
[2019-04-07 18:56] VITALS: BP 136/80
== END 2019-04-07 18:55 | disposition home or self-care (01) ==
LOC: ED 15:42
DX: M54.2 Cervicalgia (principal); F17.210 Nicotine dependence, cigarettes, uncomplicated; M48.02 Spinal stenosis, cervical region; Z88.2 Allergy status to sulfonamides
CPT/HCPCS: 72125; 96372; 99281; J1885; J2360

== ENCOUNTER 2019-08-13 12:33 | Emergency (ER) | payer BC ==
--- OUTSIDE RECORDS SUMMARY | 2019-08-13 12:37 | XMS REPORT | Continuity of Care Document ---
:1980 External Reference #:[id number] Author Name Pushpa Pool NP Address [address] [place] [address] Problems Active Problems Provider Date Adjustment disorder with depressed mood Suleiman Hunt M.D. Onset: 2015 Social History Type Date Description Comments Sex Unknown Tobacco Use Start: Unknown Patient is a current smoker, smokes every day Recreational Drug Use Recovering Addict clean since 04/04/2019 - [facility] Smoking Status Reviewed: 08/11/19 Patient is a current smoker, smokes every day Allergies, Adverse Reactions, Alerts Active Allergies Reaction Severity Comments Date Pediazole Swelling 05/04/2007 Sulfa 06/18/2017 Medications Active Medications SIG Qnty Indications Ordering Provider Date Physical Therapy treatment and M50.122 Suleiman Hunt, 04/19/2019 evaluation neck pain M.D. secondary to disk displacement History Medications Duloxetine HCL Take 1 Capsule By 60caps F43.21 Suleiman uGevara 04/19/2019 - 30mg Mouth In The Yrn Hunt 08/11/[address] Part Morning For 1 Week, Then Increase To 2 By Mouth In The Morning Diclofenac-Misopros take 1 tablet by 60tabs M50.122 Suleiman Guevara 04/19/2019 - laura mouth twice a day Yrn Hunt 08/11/2019 75-0.2mg Tablets DR Out Of Work Continue out of M50.123 Suleiman Guevara 04/19/2019 - work, anticipate Yrn Hunt 08/11/2019 return 06/04/19 No Active Unknown 04/04/2019 - Medications 04/04/2019 Note Due To Health pt was seen in [facility] 04/04/2019 - Issues this office today, [place], 04/18/2019 will be out of Afnp-C work through 04/18/19 Tramadol HCL 1-2 by mouth every 30tabs M50.13 Liz 04/04/2019 - 50mg 6 hours as needed [place], 04/19/2019 Tablets for pain Afnp-C Immunizations Description No Information Available Vital Signs Date Vital Result Comment 08/11/2019 8:29am BP Systolic 140 mmHg BP Diastolic 80 mmHg Heart Rate 72 /min Body Temperature 97.1 F Respiratory Rate 16 /min Weight 178.38 lb shoes on 05/31/2019 11:06am BP Systolic 138 mmHg BP Diastolic 64 mmHg Heart Rate 88 /min Body Temperature 98.1 F Respiratory Rate 16 /min Results Test Acquired Date Facility Test Result H/L Range Note Laboratory test 08/11/2019 [facility]) TSH <pending> 0.5-5.0 finding Procedures Description No Information Available Medical Devices Description No Information Available Encounters Type Date Location Provider Dx Diagnosis Office Visit 05/31/2019 [facility] Suleiman Guevara M50.122 Cervical disc 11:10a Yrn Hunt disorder at C5-C6 level with radiculopathy M50.123 Cervical disc disorder at C6-C7 level with radiculopathy Office Visit 05/02/2019 11:30a [facility] Suleiman Guevara F43.21 Adjustment Yrn Hunt disorder with depressed mood M50.122 Cervical disc disorder at C5-C6 level with radiculopathy M50.123 Cervical disc disorder at C6-C7 level with radiculopathy Office Visit 04/19/2019 10:30a [facility] Suleiman Guevara M50.122 Cervical disc Office Yrn Hunt disorder at C5-C6 level with radiculopathy M50.123 Cervical disc disorder at C6-C7 level with radiculopathy F43.21 Adjustment disorder with depressed mood Office Visit 04/04/2019 10:45a [facility] Office Liz M50.13 Cervical disc [place], Afnp-C disorder w radiculopathy, cervicothor region Assessments Date Code Description Provider 08/11/2019 M50.122 Cervical disc disorder at C5-C6 level Pushpa Pool NP with radiculopathy 08/11/2019 F17.200 Nicotine dependence, unspecified, Pushpa Pool NP uncomplicated 08/11/2019 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 with radiculopathy 05/31/2019 M50.123 Cervical disc disorder at C6-C7 level Suleiman Hunt M.D. with radiculopathy 05/02/2019 F43.21 Adjustment disorder with depressed mood Suleiman Hunt M.D. 05/02/2019 M50.122 Cervical disc disorder at C5-C6 level Suleiman Hunt M.D. with radiculopathy 05/02/2019 M50.123 Cervical disc disorder at C6-C7 level Suleiman Hunt M.D. with radiculopathy 04/19/2019 M50.122 Cervical disc disorder at C5-C6 level Suleiman Hunt M.D. with radiculopathy 04/19/2019 M50.123 Cervical disc disorder at C6-C7 level Suleiman Hunt M.D. with radiculopathy 04/19/2019 F43.21 Adjustment disorder with depressed mood Suleiman Hunt M.D. 04/04/2019 M50.13 Cervical disc disorder with Nae Savage radiculopathy, cervicothoracic region Plan of Treatment 08/11/2019 - Pushpa Pool, ASHIAM50.122 Cervical disc disorder at C5-C6 level with radiculopathyComments:continue PT, continue hot packs, continue massage/chiropractor consider REACH for medical marijuana - we will consult with your CARS therapist to ensure this is a healthy move qnnzelqW67.200 Nicotine dependence, unspecified, uncomplicatedComments:Patient was counselled on the importance of smoking ekxywsijhT33.21 Other stimulant dependence, in remissionComments:polysubstance abuse in remission through CARSF19.10 Other psychoactive substance abuse, uncomplicatedAllComments:Medication Management Patient Understands medications he 's taking? Yes No Are there Barriers to Adherence? Yes No Has the patient been asked about herbal supplements and therapies, andOTC meds? Yes No Care Plan1. Patient has been queried about patient's goals/preferences and functional/ lifestyle goals at relevant visits. If relevant, describe: na2. Treatment goals as explained to the patient: above3. Are there barriers to meeting treatment goals? Yes No If Yes, please describe: disease process, comorbid conditions4. Self-Management goals as described tothe patient: Yes NoAs always, we strongly encourage a healthy diet and making physical activitya part of your every day life. If you have questions about how or where to start, please contact theoffice. Functional Status Description No Information Available Mental Status Description No Information Available Referrals Description No Information Available
[2019-08-13 13:03] VITALS: BP 116/67
--- NOTE | 2019-08-13 13:36 | UC ---
Throat Pain/Nasal Oliver HPI - HPI Summary HPI Summary: 38-year-old male comes in with a chief complaint of 2-3 days of upper respiratory tract infection symptoms. He's got frontal sinus pressure with green rhinorrhea that has blood in it. Minimal sore throat. He also has cough chest congestion. No history of asthma. He has had body aches that are worse when he coughs. Has has some wheezing in his chest. - History of Current Complaint Chief Complaint: UCGeneralIllness Stated Complaint: ACHES, and COUGH Time Seen by Provider: 08/13/19 13:19 Pain Intensity: 5 - Allergies/Home Medications Allergies/Adverse Reactions: Allergies Allergy/AdvReac Type Severity Reaction Status Date / Time Sulfa (Sulfonamide Allergy Swelling Verified 08/13/19 12:57 Antibiotics) Of Face,Lips,& Throat PMH/Surg Hx/FS Hx/Imm Hx Previously Healthy: Yes - dystonia - Surgical History Surgical History: Yes Surgery Procedure, Year, and Place: APPENDECTOMY. wisdom teeth extraction. SINUS POLYPS REMOVED - Family History Known Family History: Positive: Cardiac Disease - youngest [place] at 45 y/o, Hypertension, Other - [place] - Social History Alcohol Use: None Substance Use Type: None Smoking Status (MU): Heavy Every Day Tobacco Smoker Type: Cigarettes Amount Used/How Often: 1 PPD Length of Time of Smoking/Using Tobacco: 15 years Have You Smoked in the Last Year: Yes Household Exposure Type: Cigarettes - Immunization History Most Recent Influenza Vaccination: Season Review of Systems All Other Systems Reviewed And Are Negative: Yes Constitutional: Positive: Other - SEE HPI Skin: Positive: Negative Eyes: Positive: Negative ENT: Positive: Sore Throat, Nasal Discharge, Sinus Congestion, Sinus Pain/ Tenderness Respiratory: Positive: Cough Cardiovascular: Positive: Other - SEE HPI Gastrointestinal: Positive: Negative Motor: Positive: Negative Neurovascular: Positive: Negative Musculoskeletal: Positive: Myalgia Neurological: Positive: Headache Psychological: Positive: Negative Is Patient Immunocompromised?: No Physical Exam Triage Information Reviewed: Yes Appearance: No Pain Distress, Well-Nourished, Ill-Appearing - MILD Vital Signs: Initial Vital Signs Temp 97.6 F 08/13/19 12:58 Pulse 86 08/13/19 12:58 Resp 16 08/13/19 12:58 BP 116/67 08/13/19 12:58 Pulse Ox 97 08/13/19 12:58 Vital Signs Reviewed: Yes Eye Exam: Normal Eyes: Positive: Conjunctiva Clear ENT: Positive: Pharyngeal erythema, Nasal congestion, Nasal drainage, TMs normal Neck: Positive: Supple Respiratory: Positive: No respiratory distress, Rhonchi Cardiovascular: Positive: RRR Musculoskeletal: Positive: Strength Intact, ROM Intact, Other: - Dystonia Neurological: Positive: Alert, Muscle Tone Normal Psychological: Positive: Normal Response To Family, Age Appropriate Behavior Skin Exam: Normal Throat Pain/Nasal Course/Dx - Course Course Of Treatment: DISCUSSED VIRAL VERSES BACTERIAL INFECTIONS AND THE ROLE OF ANTIBIOTICS. THE PATIENT PREFERS TO BE ON ANTIBIOTICS AT THIS TIME. - Differential Dx/Diagnosis Provider Diagnosis: Sinusitis, Bronchitis with bronchospasm Discharge ED - Sign-Out/Discharge Documenting (check all that apply): Patient Departure All imaging exams completed and their final reports reviewed: No Studies - Discharge Plan Condition: Stable Disposition: HOME Prescriptions: Albuterol HFA INHALER* [Ventolin HFA Inhaler*] 2 puff INH Q4H PRN #1 mdi PRN Reason: Wheezing Amoxicillin/Clavulanate TAB* [Augmentin TAB 875*] 875 mg PO BID #20 tab Patient Education Materials: Sinusitis (ED), Acute Bronchitis (ED), Bronchospasm (ED) Referrals: Suleiman Hunt MD [Primary Care Provider] - Additional Instructions: FOLLOW UP WITH YOUR DOCTOR IF NOT COMPLETELY IMPROVED. GET REEVALUATED SOONER IF NOT IMPROVED OR WORSE OR ANY QUESTIONS OR CONCERNS. - Billing Disposition and Condition Condition: STABLE Disposition: Home
[2019-08-13 13:38] LABS: Influenza A Molecular NEGATIVE (Negative); Influenza B Molecular NEGATIVE (Negative)
== END 2019-08-13 13:51 | disposition home or self-care (01) ==
LOC: UCEAST 12:33
DX: J40 Bronchitis, not specified as acute or chronic (principal); J98.01 Acute bronchospasm; J32.9 Chronic sinusitis, unspecified; F17.210 Nicotine dependence, cigarettes, uncomplicated; Z88.2 Allergy status to sulfonamides
CPT/HCPCS: 99212; G0463